=== PATIENT | male | born 1960 | race Caucasian/White ===

== ENCOUNTER 2018-10-09 17:31 | Emergency (ER) | payer OTHER ==
[~2018-10-09] VITALS: Ht 170.2 cm; Wt 77.1 kg
[2018-10-09 17:43] VITALS: BP_SYST 133
--- NOTE | 2018-10-09 17:43 | NUR ---
Patient to ER bed 06 to gown for evaluation. Side rails up.
--- NOTE | 2018-10-09 17:44 | NUR ---
Pt AAOx4 ambulated into ED c/o pain to groin r/t enlarged prostate. Pt c/o urinary retention/oliguria/dysuria. No other injuries/complaints per pt/noted. Will continue to monitor.
[2018-10-09] MEDS ORDERED: NACL 0.9% 1,000 ML IV ONE (17:46)
--- NOTE | 2018-10-09 17:49 | NUR ---
ER Dr. Blake at bedside examining patient.
--- NOTE | 2018-10-09 18:15 | NUR ---
# 16 FR Sandy catheter with use of sterile technique. Immediate return of 100 cc dark yellow urine noted. Bedside drainage bag placed below level of bladder. Urine sample collected and sent to lab. Pt tolerated procedure well.
[2018-10-09 18:36] LABS: BILIRUBIN,URINE NEGATIVE (NEGATIVE); BLOOD, URINE TRACE (NEGATIVE); CLARITY/URINE CLEAR (CLEAR); COLOR,URINE YELLOW (YELLOW); GLUCOSE,URINE NEGATIVE (NEGATIVE); KETONES,URINE TRACE (NEGATIVE); PROTEIN URINE TRACE (NEGATIVE)
[2018-10-09 18:37] LABS: LEUKOCYTE ESTERASE ,URINE NEGATIVE (NEGATIVE); NITRITE, URINE NEGATIVE (NEGATIVE); UROBILINOGEN,URINE 0.2 (0.2-1.0)
[2018-10-09 18:39] LABS: HEMOGLOBIN 16.9 g/dL (14.0-18.0); MEAN CORPUSCULAR HEMOGLOBIN 28 pg (27-31); MEAN CORPUSCULAR VOLUME 83 fL (79.0-98.0); RED BLOOD CELL COUNT(AUTO) 6.04 MIL/uL (4.2-6.2); WHITE BLOOD COUNT (AUTO) 7.9 K/uL (4.8-10.8)
[2018-10-09 18:40] LABS: BASOPHILS % (AUTO) 0.4 % (0.0-2.0); EOSINOPHILS # (AUTO) 0.1 K/uL (0.0-0.4); LYMPHOCYTES % (AUTO) 24.9 % (20.5-51.5); MEAN CORPUSCULAR HGB CONC 34 % (32-36); MONOCYTES # (AUTO) 0.7 K/uL (0.0-1.0); MONOCYTES % (AUTO) 8.6 % (1.7-9.3); NEUTROPHILS # (AUTO) 5.1 K/uL (1.8-7.7); NEUTROPHILS % (AUTO) 65.1 % (40.0-70.0); PLATELET COUNT (AUTO) 126 K/uL (130-430); RED CELL DISTRIBUTION WIDTH 13.4 % (9.0-15.0)
[2018-10-09 18:42] LABS: CALCIUM 8.7 mg/dL (8.4-11.0); CREATININE 1.07 mg/dL (0.55-1.30); POTASSIUM 4.1 mmol/L (3.5-5.1)
[2018-10-09 18:43] LABS: TOTAL BILIRUBIN 0.7 mg/dL (0.0-1.0)
[2018-10-09 18:59] LABS: BACTERIA,URINE FEW /HPF (None Seen); MUCUS,URINE None Seen /LPF (None Seen); RBC,URINE 0-3 /HPF (0-3); WBC,URINE 0-3 /HPF (0-3)
--- NOTE | 2018-10-09 19:08 | NUR ---
Patient given written and verbal discharge instructions and verbalizes understanding. ER MD Blake discussed with patient the results and treatment provided. Patient in stable condition. ID arm band removed. IV catheter removed intact and dressing applied, no active bleeding. Rx of Keflex, Flomax given. Patient educated on pain management and to follow up with PMD. Pain Scale 0. Opportunity for questions provided and answered. Medication side effect fact sheet provided.
[2018-10-09 19:09] VITALS: BP_SYST 119
== END 2018-10-09 19:09 | disposition home or self-care (01) ==
LOC: SED 17:31
DX: R33.9 Retention of urine, unspecified (principal); N40.0 Benign prostatic hyperplasia without lower urinary tract symptoms; R03.0 Elevated blood-pressure reading, without diagnosis of hypertension
CPT/HCPCS: 36415; 51702; 80053; 81000; 85025; 99284; J7030

== ENCOUNTER 2018-10-11 22:52 | Emergency (ER) | payer OTHER ==
[~2018-10-11] VITALS: Ht 170.2 cm; Wt 77.1 kg
[2018-10-11 23:00] VITALS: BP_SYST 141
--- NOTE | 2018-10-11 23:00 | NUR ---
AMOS CATH IRRIGATED PER MD ORDER, WELL TOLERATED BASE ON PT VERBAL CONFIRMATION. 120 ML OF SW, AND 180 ML CLEAR URINE RETURNED.
--- NOTE | 2018-10-11 23:00 | NUR ---
Patient to ER bed 8 to gown for evaluation. Side rails up. Report given to FAISAL Ortiz.
--- NOTE | 2018-10-11 23:06 | NUR ---
TIFFANY Snyder at bedside examining patient.
--- NOTE | 2018-10-12 00:25 | NUR ---
Patient given written and verbal discharge instructions and verbalizes understanding. ER MD discussed with patient the results and treatment provided. Patient in stable condition. ID arm band removed. Patient educated on pain management and to follow up with PMD. Pain Scale 0/10. Opportunity for questions provided and answered. Medication side effect fact sheet provided.
[2018-10-12 00:34] VITALS: BP_SYST 142
== END 2018-10-12 00:34 | disposition home or self-care (01) ==
LOC: SED 22:52
DX: T83.098A Other mechanical complication of other urinary catheter, initial encounter (principal); N40.0 Benign prostatic hyperplasia without lower urinary tract symptoms; Y83.8 Other surgical procedures as the cause of abnormal reaction of the patient, or of later complication, without mention of misadventure at the time of the procedure; Y92.89 Other specified places as the place of occurrence of the external cause
CPT/HCPCS: 99284

== ENCOUNTER 2023-01-11 22:51 | Emergency (ER) | payer OTHER ==
[2023-01-11 23:04] VITALS: BP_SYST 143
--- NOTE | 2023-01-11 23:10 | NUR ---
Patient triaged and placed in waiting room. VSS and patient appears in no acute distress at this time. Accompanied by self, awaiting available bed, and MD notified of need for MSE.
--- NOTE | 2023-01-11 23:40 | NUR ---
Patient to ER bed 6 to gown for evaluation. Side rails up. Report given to .
[2023-01-11 23:53] LABS: CALCIUM 8.4 mg/dL (8.4-11.0); CREATININE 1.14 mg/dL (0.55-1.30)
[2023-01-12 00:05] LABS: ALBUMIN 3.7 g/dL (3.4-4.8); TOTAL BILIRUBIN 0.6 mg/dL (0.0-1.0)
[2023-01-12 00:10] LABS: BASOPHILS # (AUTO) 0.1 K/uL (0.0-0.2); BASOPHILS % (AUTO) 0.8 % (0.0-2.0); EOSINOPHILS # (AUTO) 0.1 K/uL (0.0-0.4); HEMOGLOBIN 15.7 g/dL (14.0-18.0); LYMPHOCYTES # (AUTO) 3.9 K/uL (1.0-5.5); LYMPHOCYTES % (AUTO) 53.5 % (20.5-51.5); MEAN CORPUSCULAR HEMOGLOBIN 28 pg (27-31); MEAN CORPUSCULAR HGB CONC 34 % (32-36); MEAN CORPUSCULAR VOLUME 83 fL (79.0-98.0); MONOCYTES # (AUTO) 0.7 K/uL (0.0-1.0); MONOCYTES % (AUTO) 9.5 % (1.7-9.3); NEUTROPHILS # (AUTO) 2.5 K/uL (1.8-7.7); NEUTROPHILS % (AUTO) 34.2 % (40.0-70.0); PLATELET COUNT (AUTO) 129 K/uL (130-430); RED BLOOD CELL COUNT(AUTO) 5.56 MIL/uL (4.2-6.2); RED CELL DISTRIBUTION WIDTH 14.7 % (9.0-15.0); WHITE BLOOD COUNT (AUTO) 7.3 K/uL (4.8-10.8)
[2023-01-12 01:00] VITALS: BP_SYST 142
[2023-01-12 01:14] LABS: BILIRUBIN,URINE 3+ (NEGATIVE); BLOOD, URINE 3+ (NEGATIVE); CLARITY/URINE CLOUDY (CLEAR); COLOR,URINE RED (YELLOW); GLUCOSE,URINE TRACE (NEGATIVE); KETONES,URINE 1+ (NEGATIVE); LEUKOCYTE ESTERASE ,URINE 2+ (NEGATIVE); NITRITE, URINE POSITIVE (NEGATIVE); PROTEIN URINE 3+ (NEGATIVE)
[2023-01-12] MEDS ORDERED: CIPR500T5 PO (01:23)
[2023-01-12 01:25] LABS: BACTERIA,URINE RARE /HPF (None Seen); RBC,URINE >100 /HPF (0-3); WBC,URINE 0-3 /HPF (0-3)
--- NOTE | 2023-01-12 01:59 | NUR ---
Patient given written and verbal discharge instructions and verbalizes understanding. ER MD discussed with patient the results and treatment provided. Patient in stable condition. ID arm band removed. Rx of ciprofloxacin given. Patient educated on pain management and to follow up with PMD. Pain Scale . Opportunity for questions provided and answered. Medication side effect fact sheet provided.
[2023-01-12] MEDS ORDERED: NITR-80 PO (20:46)
== END 2023-01-12 01:57 | disposition home or self-care (01) ==
LOC: SED 22:51
DX: R31.9 Hematuria, unspecified (principal); Z79.899 Other long term (current) drug therapy
CPT/HCPCS: 36415; 76376; 80053; 81000; 85025; 87086; 99284

== ENCOUNTER 2023-01-12 19:26 | Emergency (ER) | payer OTHER ==
[~2023-01-12] VITALS: Ht 170.2 cm; Wt 83.9 kg
[~2023-01-12 19:26] MED LIST: CIPR500T5 PO
[2023-01-12 19:53] VITALS: BP_SYST 129
--- NOTE | 2023-01-12 19:57 | NUR ---
PT CAME FR HOME REQUESTING FOR THE AMOS TO BE REMOVED. THE F/C WAS INSERTED YESTERDDAY HERE DUE TO HEMATURIA COMPLAINTS. PER PT, HE NO LONGER HAS HEMATURIA. NKDA. PMH: BPH SX HX: PROSTATE SURGERY 4 YRS AGO.
--- NOTE | 2023-01-12 20:31 | NUR ---
Patient to ER bed 1 to gown for evaluation. Side rails up. Report given to Tamera MALONE.
--- NOTE | 2023-01-12 20:40 | NUR ---
Patient arrived with duff in place, removed by Dr. Levi
--- NOTE | 2023-01-12 20:40 | NUR ---
ER at bedside examining patient.
[2023-01-12] MEDS ORDERED: NITR-80 PO (20:46)
--- NOTE | 2023-01-12 20:50 | NUR ---
Patient given written and verbal discharge instructions and verbalizes understanding. ER MD discussed with patient the results and treatment provided. Patient in stable condition. ID arm band removed. Patient educated on pain management and to follow up with PMD. Pain Scale 0/10 Opportunity for questions provided and answered.
== END 2023-01-12 20:50 | disposition home or self-care (01) ==
LOC: SED 19:26
DX: N39.0 Urinary tract infection, site not specified (principal); R33.9 Retention of urine, unspecified; Z79.899 Other long term (current) drug therapy
CPT/HCPCS: 99283